=== PATIENT | female | born 1980 | race Caucasian/White ===

== ENCOUNTER 2018-04-26 19:20 | Emergency (ER) | payer MEDICAID ==
[~2018-04-26] VITALS: Ht 162.6 cm; Wt 75.1 kg
[2018-04-26 19:26] VITALS: Ht 162.6 cm; Wt 75.1 kg
[2018-04-26 20:12] LABS: microscopic required? YES; urine erythrocyte 2+ (NEGATIVE)
[2018-04-26 21:45] VITALS: BP 115/70
== END 2018-04-26 21:45 | disposition home or self-care (01) ==
LOC: ED 19:20
PROVIDERS: Emergency Medicine
PROC: 3E023NZ Introduction of Analgesics, Hypnotics, Sedatives into Muscle, Percutaneous Approach (ICD-10-PCS; principal; 2018-04-26)
DX: N12 Tubulo-interstitial nephritis, not specified as acute or chronic (principal)
CPT/HCPCS: J1885

== ENCOUNTER 2019-06-12 09:50 | Emergency (ER) | payer MEDICAID ==
[~2019-06-12] VITALS: Ht 157.5 cm; Wt 78.5 kg
[2019-06-12 10:09] VITALS: Ht 157.5 cm; Wt 78.5 kg
[2019-06-12 11:29] LABS: CARBON DIOXIDE 27.9 mmol/L (21-32); CHLORIDE SERUM 103 mmol/L (98-107); CREATININE SERUM 0.5 mg/dL (0.6-1.0); GFR1 > 60 mL/min; GLUCOSE SERUM 120 mg/dL (74-106); POTASSIUM SERUM 3.9 mmol/L (3.5-5.1); SODIUM SERUM 139 mmol/L (136-145)
[2019-06-12 11:34] LABS: ALBUMIN 3.9 g/dL (3.4-5.0); ALKALINE PHOSPHATASE 80 U/L (46-116); ALT/SGPT 108 U/L (14-59); AST/SGOT 52 U/L (15-37); BILIRUBIN TOTAL 0.21 mg/dL (0.20-1.00)
[2019-06-12 11:35] LABS: TOTAL PROTEIN, SERUM 8.4 g/dL (6.4-8.2)
[2019-06-12 12:04] LABS: BASOPHIL % 0.6 % (0-2); PLATELET COUNT 323 x10^3mcL (130-400); RED CELL DISTRIBUTION WIDTH 14.1 % (11.5-14.5)
[2019-06-12 16:28] VITALS: BP 98/62
== END 2019-06-12 16:28 | disposition home or self-care (01) ==
LOC: ED 09:50
PROVIDERS: Emergency Medicine
DX: H65.91 Unspecified nonsuppurative otitis media, right ear (principal); J02.9 Acute pharyngitis, unspecified
CPT/HCPCS: 87804; J0696; J2405; J2765; J3010; J7030; J7060